=== PATIENT | female | born 1985 | race American Indian/Alaskan Native ===

== ENCOUNTER 2019-07-17 09:05 | Emergency (ER) | payer BC ==
--- NOTE | 2019-07-17 11:19 | XRay Report ---
CHEST 2 VIEWS INDICATION: cough, fever. COMPARISON: None. FINDINGS: Support devices: None. Heart: Within normal limits. Lungs/Pleura: No acute air space or interstitial disease. No significant pleural effusion. IMPRESSION: No acute findings. Signer Name: Jhonatan Jorgnesen MD Signed: 07/17/2019 11:15 AM Workstation Name: [id number]
[2019-07-17] MEDS ORDERED: SODIUM CHLORIDE 0.9% 1000 ML 1,000 ML IV ONE (11:49)
[2019-07-17] MEDS ORDERED: ONDANSETRON 4 MG/2 ML INJ IV ONE (11:49)
--- NOTE | 2019-07-17 11:55 | Emergency Department Report ---
ED General Adult HPI - General Chief complaint: Upper Respiratory Infection Stated complaint: CHEST PAIN/VOMIT/DIZZY Time Seen by Provider: 07/17/19 10:35 Source: patient Mode of arrival: Wheelchair Limitations: No Limitations - History of Present Illness Initial comments: 33-year-old -[place] female patient complains of cough, fever/chills/bodyaches, and nausea/vomiting starting yesterday morning. She states cough is productive of green mucus and is causing chest pain. She denies any shortness of breath or smoking, abdominal pain, hematemesis/coffee-ground emesis, stool changes. She states her fever was tactile. Since states she has had about 7-10 episodes of vomiting and chills very weak. -: Sudden Severity scale (0 -10): 10 - Related Data Previous Rx's Medication Instructions Recorded Last Taken Type Benzonatate 200 mg PO TID PRN #30 capsule 07/17/19 Unknown Rx Ibuprofen [Motrin] 800 mg PO Q8HR PRN #21 tablet 07/17/19 Unknown Rx Ondansetron [Zofran Odt] 4 mg PO Q8HR PRN #20 tab.rapdis 07/17/19 Unknown Rx Oseltamivir [Tamiflu] 75 mg PO BID 5 Days #10 cap 07/17/19 Unknown Rx Allergies Allergy/AdvReac Type Severity Reaction Status Date / Time aspirin Allergy Vomiting Verified 07/17/19 09:10 ED Review of Systems ROS: Stated complaint: CHEST PAIN/VOMIT/DIZZY Other details as noted in HPI Comment: All other systems reviewed and negative Constitutional: see HPI Respiratory: cough. denies: shortness of breath Cardiovascular: chest pain (with coughing only) Gastrointestinal: nausea, vomiting. denies: abdominal pain ED Past Medical Hx - Past Medical History Previous Medical History?: No - Surgical History Past Surgical History?: No - Social History Smoking Status: Unknown if ever smoked Substance Use Type: None - Medications Home Medications: Home Medications Medication Instructions Recorded Confirmed Last Taken Type Benzonatate 200 mg PO TID PRN #30 capsule 07/17/19 Unknown Rx Ibuprofen [Motrin] 800 mg PO Q8HR PRN #21 tablet 07/17/19 Unknown Rx Ondansetron [Zofran Odt] 4 mg PO Q8HR PRN #20 tab.rapdis 07/17/19 Unknown Rx Oseltamivir [Tamiflu] 75 mg PO BID 5 Days #10 cap 07/17/19 Unknown Rx ED Physical Exam - General Limitations: No Limitations General appearance: alert, in no apparent distress - Head Head exam: Present: atraumatic, normocephalic - Eye Eye exam: Present: normal appearance - ENT ENT exam: Present: normal orophraynx, mucous membranes moist - Neck Neck exam: Present: normal inspection, full ROM. Absent: lymphadenopathy - Respiratory Respiratory exam: Present: normal lung sounds bilaterally. Absent: respiratory distress, wheezes, rales - Cardiovascular Cardiovascular Exam: Present: regular rate, normal rhythm. Absent: systolic murmur, diastolic murmur, rubs, gallop - GI/Abdominal GI/Abdominal exam: Present: soft, normal bowel sounds. Absent: distended, tenderness - Extremities Exam Extremities exam: Present: normal inspection - Back Exam Back exam: Present: normal inspection - Neurological Exam Neurological exam: Present: alert, oriented X3 - Psychiatric Psychiatric exam: Present: normal affect, normal mood - Skin Skin exam: Present: warm, dry, intact, normal color. Absent: rash ED Course Vital Signs 07/17/19 09:10 Temperature 98.3 F Pulse Rate 87 Respiratory 20 Rate Blood Pressure 137/82 [Left] O2 Sat by Pulse 100 Oximetry ED Medical Decision Making - Medical Decision Making 33-year-old female here today with complaints of flulike symptoms and a severe cough. Chest x-ray is negative for pneumonia. Patient is afebrile and nontoxic cardiac. Symptoms presentation are consistent with influenza. Patient is stable for discharge home with Tamiflu and symptomatic treatment. Recommend follow with PCP in 5-7 days. Discussed very strict return precautions in detail with patient and patient's who state understanding. Critical care attestation.: If time is entered above; I have spent that time in minutes in the direct care of this critically ill patient, excluding procedure time. ED Disposition Clinical Impression: Influenza Disposition: DC-01 TO HOME OR SELFCARE Is pt being admited?: No Condition: Stable Instructions: Influenza (ED) Prescriptions: Benzonatate 200 mg PO TID PRN #30 capsule PRN Reason: Cough Ibuprofen [Motrin] 800 mg PO Q8HR PRN #21 tablet PRN Reason: fever/pain Oseltamivir [Tamiflu] 75 mg PO BID 5 Days #10 cap Ondansetron [Zofran Odt] 4 mg PO Q8HR PRN #20 tab.rapdis PRN Reason: Nausea Referrals: FITZ SNYDER MD [Primary Care Provider] - 3-5 Days
[2019-07-17 13:05] VITALS: BP 134/80
== END 2019-07-17 13:04 | disposition home or self-care (01) ==
LOC: ED 09:05
DX: J11.1 Influenza due to unidentified influenza virus with other respiratory manifestations (principal); R11.2 Nausea with vomiting, unspecified; Z79.1 Long term (current) use of non-steroidal anti-inflammatories (NSAID); Z79.899 Other long term (current) drug therapy; Z88.6 Allergy status to analgesic agent
CPT/HCPCS: 71046; 93005; 93010; 96361; 96374; 99283; J2405; J7030